=== PATIENT | male | born 1960 | race Caucasian/White ===

== ENCOUNTER 2024-05-29 08:43 | Day surgery (SDC) | payer OTHER ==
[~2024-05-29] VITALS: Ht 167.6 cm; Wt 87.5 kg
[~2024-05-29 08:43] MED LIST: ARTHRITIS PAIN150 G1 TOP; BAYER CHEWABLE81 MG PO; FISH OIL 1,2001 EACH PO; IBLOOD GLUCOSE TEST STRIP 1 EA TEST VI PRN; LACTATED RINGER'S 1,000 ML IV SCH; LIDOCAINE HCL 1% 5 ML SDV INJ ONE; LIPITOR40 MG PO; MIDAZOLAM HCL 5 MG/5 ML VIAL IV PRN; NITROSTAT0.4 MG SL; NORCO 5-325 TA1 EACH PO; PEPCID40 MG PO; TURMERIC500 M2 PO; fentaNYL citrate 100 MCG/2 ML VIAL IV PRN
[2024-05-29 08:59] VITALS: BP 112/77
[2024-05-29] MEDS ORDERED: MIDAZOLAM HCL 5 MG/5 ML VIAL ONE (09:16)
[2024-05-29] MEDS ORDERED: fentaNYL citrate 100 MCG/2 ML VIAL ONE (09:16)
--- NOTE | 2024-05-29 10:10 | NUR ---
05/29/24 1010 Jenn Stanley 0958-PATIENT ARRIVED TO PACU ON 2L NC RR EVEN 92% PATIENT REACTIVE TO VERBAL STIMULI DENIES PAIN OR NAUSEA. ABDOMEN SOFT ENCOURAGED TO PASS GAS. IVF INFUSING. SR HR 60'S. 1008-PATIENT SLEEPING 2L NC 95% RR EVEN. PASSING GAS.
[2024-05-29 10:53] VITALS: BP 107/86
--- NOTE | 2024-05-29 12:22 | OR ---
[facility] [address], [place] [address] Signed DATE OF OPERATION: 05/29/2024 SURGEON: Melvin Alexander MD PREOPERATIVE DIAGNOSIS: Personal history of colonic polyps x2 in 2014 at age 53 and again x2 in 2019 at age 58. POSTOPERATIVE DIAGNOSIS: Minimal to moderate sigmoid diverticulosis. PROCEDURE: Colonoscopy without biopsy. ESTIMATED BLOOD LOSS: None. INDICATIONS: Quinn is a 64-year-old gentleman, asked to see me for a followup colonoscopy. He has had two prior colonoscopies done in [place], [place]. He started in 2013 at the age of 53 [address] Martínez. He had a couple of polyps removed. He went back in [address] Hong in 2019 at age 58. Again, he had a couple of small adenomatous polyps removed. He said he has been on the five year rotation. He lives [place] the way up in [place], [place] but is originally from here in [place], [place]. He likes to come here to be close to family when he has procedures. He said he has no lower GI complaints. There is no family history of colon cancer or polyps. In the office, I gave him a pamphlet on colonoscopy. He understands the nature of the test. There is risk including, but not limited to gas bloating, crampy abdominal pain, bleeding, perforation requiring surgery, and missed diagnosis. We reviewed the written instructions for the bowel prep line by line. We had him hold his diclofenac three days prior to the procedure along with the aspirin. He understands an adult person has to take him home afterwards due to the IV sedation. He has expressed understanding and would like to proceed. DESCRIPTION OF PROCEDURE: Quinn was taken into our endoscopy suite, placed in the left lateral decubitus position. He was given 4 mg of Versed and 125 mcg of fentanyl. A digital rectal exam was performed and this was unremarkable. No external hemorrhoids. Good sphincter tone. No masses. The adult colonoscope was introduced and advanced under direct visualization of the camera without difficulty. It took just a little extra sedation as we made it finally down into the cecum itself. His prep was quite good. We could easily see his Electronically Signed By: MELVIN ALEXANDER MD 05/29/24 1222 PATIENT NAME: QUINN ZUNIGA OPERATIVE REPORT DATE OF : 64 REPORT #: [id number] PHYSICIAN: MELVIN ALEXANDER MD PCP: MAIN [facility]AL[facility] DO REPORT IS CONFIDENTIAL AND NOT TO BE RELEASED WITHOUT AUTHORIZATION [facility] [address], [place] [address] Signed appendiceal orifice and ileocecal valve. The scope was then slowly withdrawn. We took several pictures throughout for photodocumentation. He does have diverticula in the sigmoid colon. They are moderate in size, few in number and scattered about. Down in the rectum, the scope was retroflexed and very minimal internal hemorrhoid tissue above the anal canal. After this, the gas was suctioned out and the colonoscope removed. Quinn tolerated the procedure quite well. RECOMMENDATIONS: Quinn will stay on the five year rotation given his previous history of adenomatous polyps. Melvin Alexander MD ALB/MODL /[id number] cc: MD Melvin Bhatia MD Copies: KEVIN BURGESS MD, ANDREW L MD ~ Electronically Signed By: MELVIN ALEXANDER MD 05/29/24 1222 PATIENT NAME: QUINN ZUNIGA OPERATIVE REPORT DATE OF : 64 REPORT #: [id number] PHYSICIAN: MELVIN ALEXANDER MD PCP: MAIN HIDALGO DO REPORT IS CONFIDENTIAL AND NOT TO BE RELEASED WITHOUT AUTHORIZATION
== END 2024-05-29 11:00 | disposition home or self-care (01) ==
LOC: DS 08:43
PROVIDERS: ATTEND Colon & Rectal Surgery
PROC: 0DJD8ZZ Inspection of Lower Intestinal Tract, Via Natural or Artificial Opening Endoscopic (ICD-10-PCS; principal; 2024-05-29 09:45)
DX: K57.30 Diverticulosis of large intestine without perforation or abscess without bleeding (principal); K64.8 Other hemorrhoids; I10 Essential (primary) hypertension; K21.9 Gastro-esophageal reflux disease without esophagitis; I25.10 Atherosclerotic heart disease of native coronary artery without angina pectoris; Z79.899 Other long term (current) drug therapy; Z86.0100 Personal history of colon polyps, unspecified
CPT/HCPCS: 99153; G0500; J2250; J3010; J7121